=== PATIENT | male | born 2000 | race Caucasian/White ===

== ENCOUNTER 2025-02-15 10:30 | Emergency (ER) | payer BC ==
--- NOTE | 2025-02-15 11:45 | ERPHSYRPT ---
- History of Present Illness Time Seen by Provider: 02/15/25 11:32 Historian: patient Exam Limitations: no limitations Patient Subjective Stated Complaint: lower right abdominal pain that started last night, patient stated he thought it was gas so he got up and walked around and got gas out, patient then felt better, patient stated the right lower abdomen started hurting again this morning, patient stated he thinks he may be lactose intolerant, patient stated he had lactose in his diet yesterday and then started feeling bad, patient stated he has had this issue before but not to this extent Triage Nursing Assessment: patient presents to ed via private vehicle, patient alert and oriented x 4, patient's abdomen soft/nondistended, nontender upon palpation, vitals wnl, skin n/w/d, bowel sounds active x 4 quadrants Physician History: 24-year-old male presents to the emergency room with right lower quadrant abdominal pain patient reports he feels like it could be gas but is unsure he was doing some online research and was concerned about his appendix denies any nausea or vomiting but does report some right lower quadrant pain denies any diarrhea or constipation denies any sick contacts patient reports she does have a decreased p.o. appetite today Timing/Duration: day(s) (1) Activities at Onset: none Quality: cramping Abdominal Pain Onset Location: RLQ Pain Radiation: no radiation Severity of Pain-Current: mild Associated Symptoms: No back, No diaphoresis, No headache, No heartburn, No shortness of breath Allergies/Adverse Reactions: No Known Drug Allergies Allergy (Unverified 02/15/25 11:34) Hx Tetanus, Diphtheria Vaccination/Date Given: No Hx Influenza Vaccination/Date Given: No Travel Risk - International Travel Have you traveled outside of the country in past 3 weeks: No - Emerging Infectious Disease Are you exhibiting symptoms associated with any current EIDs: No - Review of Systems Constitutional: No Fever, No Chills Eyes: No Symptoms Ears, Nose, & Throat: No Symptoms Respiratory: No Cough, No Dyspnea Cardiac: No Chest Pain, No Edema, No Syncope Abdominal/Gastrointestinal: Abdominal Pain, No Nausea, No Vomiting, No Diarrhea Genitourinary Symptoms: No Dysuria Musculoskeletal: No Back Pain, No Neck Pain Skin: No Rash Neurological: No Dizziness, No Focal Weakness, No Sensory Changes Psychological: No Symptoms Endocrine: No Symptoms All Other Systems: Reviewed and Negative - Past Medical History Pertinent Past Medical History: Yes Other Medical History: skin cancer- melanoma - Past Surgical History Past Surgical History: Yes Other Surgical History: removal of skin cancer on back of neck - Social History Smoking Status: Never smoker Exposure to second hand smoke: No Drug Use: none - Social Determinants of Health Will the patient participate in the screening: Yes Do you worry about a steady place to live?: No Do you have any problems with any of the following?: No known problems In the past 12 months,have you had to go without utilities?: No Transportation Issues: No Has anyone in your support network made you feel unsafe?: No Have you or anyone in your house had to go w/o enough food: No - Nursing Vital Signs Nursing Vital Signs: Initial Vital Signs Temperature 97.1 F 02/15/25 10:31 Pulse Rate 67 02/15/25 10:31 Respiratory Rate 16 02/15/25 10:31 Blood Pressure 143/89 02/15/25 10:31 O2 Sat by Pulse Oximetry 100 02/15/25 10:31 Pain Scale Pain Intensity 2 - Physical Exam General Appearance: no apparent distress, alert Eye Exam: PERRL/EOMI, eyes nml inspection Ears, Nose, Throat Exam: normal ENT inspection, pharynx normal, moist mucous membranes Neck Exam: normal inspection, non-tender, supple, full range of motion Respiratory Exam: normal breath sounds, lungs clear, No respiratory distress Cardiovascular Exam: regular rate/rhythm, normal heart sounds Gastrointestinal/Abdomen Exam: soft, tenderness (RLQ), No mass Back Exam: normal inspection, normal range of motion, No CVA tenderness, No vertebral tenderness Extremity Exam: normal inspection, normal range of motion, pelvis stable Neurologic Exam: alert, oriented x 3, cooperative, normal mood/affect, nml cerebellar function, sensation nml, No motor deficits Skin Exam: normal color, warm, dry SpO2: 100 - Course Nursing assessment & vital signs reviewed: Yes Ordered Tests: Active Orders 24 hr Category Date Time Status ABDOMEN AND PELVIS W CONTRAST [CT] Stat Exams 02/15/25 11:43 Completed CBC W DIFF Stat Lab 02/15/25 12:00 Completed CMP Stat Lab 02/15/25 12:00 Completed LIPASE Stat Lab 02/15/25 12:00 Completed UA W/RFX UR CULTURE Stat Lab 02/15/25 11:43 Completed Medication Summary Discontinued Medications Generic Name Dose Route Start Last Admin Trade Name Christine PRN Reason Stop Dose Admin Sodium Chloride 1,000 mls @ 999 mls/hr 02/15/25 11:43 02/15/25 14:37 Sodium Chloride 0.9% 1000 Ml IV 02/15/25 12:43 Infused .Q1H1M STA Infusion Sodium Chloride Confirm 02/15/25 12:17 Sodium Chloride 0.9% 1000 Ml Administered 02/15/25 12:18 Dose 1,000 mls @ ud .ROUTE .STK-MED ONE Sodium Chloride Confirm 02/15/25 12:40 Sodium Chloride 0.9% 1000 Ml Administered 02/15/25 12:41 Dose 1,000 mls @ ud .ROUTE .STK-MED ONE Lab/Rad Data: Laboratory Result Diagrams 02/15/25 12:00 02/15/25 12:00 Laboratory Results 02/15/25 02/15/25 02/15/25 Range/Units 12:00 12:00 11:43 WBC 13.1 H (4.23-9.07) x10^3/uL RBC 5.40 (4.63-6.08) x10^6/uL Hgb 15.1 (13.7-17.5) g/dL Hct 43.8 (40.1-51.0) % MCV 81.1 (79.0-92.2) fL MCH 28.0 (25.7-32.2) pg MCHC 34.5 (32.3-36.5) g/dL RDW 13.2 (11.6-14.4) % Plt Count 261 (163-337) x10^3/uL MPV 10.4 (9.4-12.4) fL Gran % 80.9 H (34.0-67.9) % Immature Gran % (Auto) 0.5 H (0.001-0.429) % Nucleat RBC Rel Count 0.0 (0.00-0.2) % Eos # (Auto) 0.02 L (0.04-0.54) x10^3/uL Immature Gran # (Auto) 0.07 H (0.001-0.031) x10^3u/L Absolute Lymphs (auto) 1.32 (1.32-3.57) x10^3/uL Absolute Monos (auto) 1.05 H (0.30-0.82) x10^3/uL Absolute Nucleated RBC 0.00 (0.00-0.012) x10^3u/L Lymphocytes % 10.1 L (21.8-53.1) % Monocytes % 8.0 (5.3-12.2) % Eosinophils % 0.2 L (0.8-7.0) % Basophils % 0.3 (0.2-1.2) % Absolute Granulocytes 10.55 H (1.78-5.38) x10^3/uL Basophils # 0.04 (0.01-0.08) x10^3/uL Sodium 140 (135-145) mmol/L Potassium 4.8 (3.5-5.1) mmol/L Chloride 102 (98-107) mmol/L Carbon Dioxide 25 (22-30) mmol/L Anion Gap 17.2 H (5-15) MEQ/L BUN 14 (9-20) mg/dL Creatinine 0.94 (0.66-1.25) mg/dL Estimated GFR 115.4 ML/MIN Glucose 105 (74-106) mg/dL Calcium 9.8 (8.4-10.2) mg/dL Total Bilirubin 0.30 (0.2-1.3) mg/dL AST 33 (17-59) U/L ALT 38 (0-50) U/L Alkaline Phosphatase 108 (38-126) U/L Serum Total Protein 8.5 H (6.3-8.2) g/dL Albumin 5.0 (3.5-5.0) g/dL Lipase 38 (23-300) U/L Urine Color Yellow (Yellow) Urine Appearance Clear (Clear) Urine pH 6.0 (4.6-8.0) Ur Specific [place] 1.025 (1.005-1.030) Urine Protein Negative (Negative) Urine Glucose (UA) Negative (Negative) mg/dL Urine Ketones Negative (Negative) Urine Blood Moderate A (Negative) Urine Nitrite Negative (Negative) Urine Bilirubin Negative (Negative) Urine Urobilinogen 0.2 (0.2) mg/dL Ur Leukocyte Esterase Negative (Negative) U Hyaline Cast (Auto) NONE SEEN (0-2) /LPF Urine Microscopic RBC 6-10 A (0-5) /HPF Urine Microscopic WBC 0-2 (0-5) /HPF Ur Epithelial Cells None Seen (None Seen) /HPF Urine Bacteria None Seen (None Seen) /HPF Urine Culture Reflexed NO (NO) - Progress Progress Note: 02/15/25 14:04 Impression: 2-3 mm right UVJ calculus producing partial obstructive uropathy as detailed. Incidental fatty liver. Remaining CT abdomen/pelvis with contrast exam is normal. 02/15/25 14:17 Was found to have a 2 to 3 mm right UVJ stone 02/15/25 15:24 Comparison: None Lung bases clear. Heart not enlarged. Noncontrasted stomach and bowel loops appear nonobstructed with normal appendix. 2-3 mm right UVJ calculus with minimal hydroureter and mild hydronephrosis favoring partial obstructive uropathy. Incidental mild diffuse fatty liver. No free fluid/air. Remaining liver, gallbladder, pancreas, spleen, adrenal glands, kidneys, ureters, bladder, and aorta are unremarkable. No pathologic retroperitoneal lymphadenopathy. Osseous structures intact. Impression: 2-3 mm right UVJ calculus producing partial obstructive uropathy as detailed. Incidental fatty liver. Remaining CT abdomen/pelvis with contrast exam is normal. - Departure Departure Disposition: Home Clinical Impression: Kidney stone Condition: Stable Critical Care Time: No Referrals: WINTER BEARD MD [Primary Care Provider, [facility]] - Follow up/PCP as directed KURT IBARRA [NON-STAFF PHY W/O PRIVILEGES, UNKNOWN] - Follow up/PCP as directed Instructions: Abdominal pain, Kidney stones in adults Prescriptions: Ibuprofen 600 mg PO Q6H PRN PRN #20 tablet PRN Reason: Pain Tamsulosin HCl [Flomax] 0.4 mg PO DAILY 30 Days #30 cap
[2025-02-15 12:08] VITALS: TEMP 97.2
[2025-02-15 12:08] LABS: BASOPHIL % 0.3 % (0.2-1.2); Basophil (Absolute #) 0.04 x10^3/uL (0.01-0.08); Eosinophil (Absolute #) 0.02 x10^3/uL (0.04-0.54); Hematocrit 43.8 % (40.1-51.0); Hemoglobin 15.1 g/dL (13.7-17.5); IMMATURE GRAN # 0.07 x10^3u/L (0.001-0.031); IMMATURE GRAN % 0.5 % (0.001-0.429); Lymphocyte (Absolute #) 1.32 x10^3/uL (1.32-3.57); Mean Corpuscular Hemoglobin 28.0 pg (25.7-32.2); Mean Corpuscular Hgb Concent. 34.5 g/dL (32.3-36.5); Monocyte (Absolute #) 1.05 x10^3/uL (0.30-0.82); NUCLEATED RBC # 0.00 x10^3u/L (0.00-0.012); NUCLEATED RBC % 0.0 % (0.00-0.2); Platelet Count 261 x10^3/uL (163-337); Red Blood Count 5.40 x10^6/uL (4.63-6.08); White Blood Count 13.1 x10^3/uL (4.23-9.07)
[2025-02-15 12:28] LABS: Calcium 9.8 mg/dL (8.4-10.2); Carbon Dioxide 25.0 mmol/L (22-30); Creatinine 1 0.94 mg/dL (0.66-1.25); EST GLOMERULAR FILTRATION RATE 115.4 ML/MIN; Glucose 105.0 mg/dL (74-106); Potassium 4.8 mmol/L (3.5-5.1); SGOT/AST 33.0 U/L (17-59); SGPT/ALT 38.0 U/L (0-50); Total Protein 8.5 g/dL (6.3-8.2)
[2025-02-15 13:54] VITALS: O2SAT 100
--- NOTE | 2025-02-15 13:56 | XRAY ---
Indication: Right lower quadrant pain. Multiple contiguous axial images obtained through the abdomen and pelvis using 80 cc Isovue 370 contrast. Comparison: None Lung bases clear. Heart not enlarged. Noncontrasted stomach and bowel loops appear nonobstructed with normal appendix. 2-3 mm right UVJ calculus with minimal hydroureter and mild hydronephrosis favoring partial obstructive uropathy. Incidental mild diffuse fatty liver. No free fluid/air. Remaining liver, gallbladder, pancreas, spleen, adrenal glands, kidneys, ureters, bladder, and aorta are unremarkable. No pathologic retroperitoneal lymphadenopathy. Osseous structures intact. Impression: 2-3 mm right UVJ calculus producing partial obstructive uropathy as detailed. Incidental fatty liver. Remaining CT abdomen/pelvis with contrast exam is normal.
[2025-02-15 14:26] LABS: Glucose, Urine Negative (Negative); Protein,Urine Dip Negative (Negative); WBC 0-2 /HPF (0-5)
[2025-02-15 15:28] VITALS: RESP 16
[2025-02-15 15:36] VITALS: BP 126/72; PULSE 78
== END 2025-02-15 15:36 | disposition home or self-care (01) ==
LOC: ED 10:30
DX: N13.2 Hydronephrosis with renal and ureteral calculous obstruction (principal); R10.31 Right lower quadrant pain; Z79.899 Other long term (current) drug therapy